=== PATIENT | male | born 1975 | race Caucasian/White ===

== ENCOUNTER 2025-07-31 13:13 | Outpatient (CLI) | payer OTHER, SELFPAY | END 2025-07-31 13:14 | disposition home or self-care (01) | LOC: NFLDREF 08-08 00:17 | PROVIDERS: PCP Family Medicine; Referring Provider Family Medicine; Visit Provider Family Medicine | DX: E78.5 Hyperlipidemia, unspecified (principal) | CPT/HCPCS: 80053; 80061 ==